=== PATIENT | male | born 1975 | race Caucasian/White ===

== ENCOUNTER 2018-03-11 15:12 | Day surgery (SDC) | payer OTHER ==
[2018-03-11] MEDS: POLYMYXIN/BACITRACIN 1L IRRIG
[2018-03-11] MEDS ORDERED: MIDAZOLAM 1 MG/ML 2 ML INJ (16:52)
[2018-03-11] MEDS ORDERED: PROPOFOL 20 ML (16:52)
[2018-03-11] MEDS ORDERED: CEFAZOLIN 1 GM INJ (16:52)
[2018-03-11] MEDS ORDERED: ROCURONIUM 50 MG INJ ×2 (16:52→17:40)
[2018-03-11] MEDS ORDERED: ROPIVACAINE 0.5 % 30 ML VIAL (16:52)
[2018-03-11] MEDS ORDERED: DEXAMETHASONE 4 MG/ML 1 ML INJ (17:40)
[2018-03-11] MEDS ORDERED: KETOROLAC 30 MG INJ (17:40)
[2018-03-11] MEDS ORDERED: ACETAMINOPHEN 1000MG/100ML IV 100 ML (17:40)
[2018-03-11] MEDS ORDERED: ONDANSETRON 4 MG INJ (17:40)
[2018-03-11] MEDS ORDERED: METOCLOPRAMIDE 10 MG INJ (17:40)
[2018-03-11] MEDS ORDERED: OXYCODONE/ACETAMINOPHEN (5/325) TAB PO (18:00)
[2018-03-11] MEDS ORDERED: EPHEDrine SULFATE 50 MG/5 ML SYG IV (18:00)
[2018-03-11] MEDS ORDERED: FENTAnyl 50 MCG/ML VIAL IV ×3 (18:00)
[2018-03-11] MEDS ORDERED: METOCLOPRAMIDE 10 MG INJ IV (18:00)
[2018-03-11] MEDS ORDERED: DIPHENHYDRAMINE 50 MG INJ IV (18:00)
[2018-03-11] MEDS ORDERED: MEPERIDINE 25 MG INJ IV (18:00)
[2018-03-11] MEDS ORDERED: ONDANSETRON 4 MG INJ IV (18:00)
[2018-03-11] MEDS ORDERED: HYDROmorphONE (0.2 MG/ML) 10ML SYG IV ×3 (18:00)
[2018-03-11] MEDS ORDERED: LABETALOL HCL 20MG INJ IV (18:00)
[2018-03-11] MEDS ORDERED: SUGAMMADEX SODIUM 200 MG/2 ML VIAL IV (18:35)
[2018-03-11] MEDS: OXYCODONE/ACETAMINOPHEN (5/325) TAB PO (19:53)
== END 2018-03-11 20:41 | disposition home or self-care (01) ==
LOC: SDS 15:12
DX: S52.572A Other intraarticular fracture of lower end of left radius, initial encounter for closed fracture (principal); W19.XXXA Unspecified fall, initial encounter; G56.02 Carpal tunnel syndrome, left upper limb; I10 Essential (primary) hypertension; J45.909 Unspecified asthma, uncomplicated
CPT/HCPCS: 25609; 73090